=== PATIENT | female | born 1985 | race Caucasian/White ===

== ENCOUNTER 2018-08-14 13:17 | Emergency (ER) | payer OTHER ==
--- NOTE | 2018-08-14 13:49 | ED ---
General Adult HPI - General Chief complaint: Psychiatric Symptoms Stated complaint: Mental health Time Seen by Provider: 08/14/18 13:27 Source: patient, EMS, RN notes reviewed, old records reviewed Mode of arrival: EMS Limitations: no limitations - History of Present Illness Initial comments: 33-year-old female presents for mental health evaluation. She has been petitioned by her boyfriend. According to police and EMS she was threatening to kill herself with a knife. She does admit to alcohol consumption and taking Xanax this morning. She denies actually cutting herself. She states she has been depressed and had increased anxiety. She has past medical history depression, anxiety, and PTSD. - Related Data Home Medications Medication Instructions Recorded Confirmed ALPRAZolam [Xanax] 1 mg PO BID 08/14/18 08/14/18 Atomoxetine HCl [Strattera] 50 mg PO DAILY 08/14/18 08/14/18 FLUoxetine HCL [PROzac] 60 mg PO DAILY 08/14/18 08/14/18 cloNIDine HCL [Catapres] 0.1 mg PO BID 08/14/18 08/14/18 cloNIDine HCL [Catapres] 0.2 mg PO HS 08/14/18 08/14/18 Allergies Allergy/AdvReac Type Severity Reaction Status Date / Time aripiprazole [From Abilify] Allergy Unknown Verified 08/14/18 14:03 Penicillins Allergy Dyspnea Verified 08/14/18 14:03 Review of Systems ROS Statement: Those systems with pertinent positive or pertinent negative responses have been documented in the HPI. ROS Other: All systems not noted in ROS Statement are negative. Past Medical History Past Medical History: Hypertension History of Any Multi-Drug Resistant Organisms: None Reported Additional Past Surgical History / Comment(s): Ectopic - RT fallopian tube removed Past Psychological History: Anxiety Smoking Status: Never smoker Past Alcohol Use History: Occasional Past Drug Use History: None Reported General Exam Limitations: no limitations General appearance: alert, in no apparent distress, appears intoxicated Head exam: Present: atraumatic, normocephalic Eye exam: Present: normal appearance, PERRL ENT exam: Present: normal exam Neck exam: Present: normal inspection. Absent: tenderness, meningismus Respiratory exam: Present: normal lung sounds bilaterally. Absent: respiratory distress, wheezes Cardiovascular Exam: Present: normal rhythm, tachycardia GI/Abdominal exam: Present: soft. Absent: distended, tenderness Extremities exam: Present: normal inspection, tenderness Neurological exam: Present: alert, oriented X3 Psychiatric exam: Present: depressed, anxious, suicidal ideation Skin exam: Present: warm, dry, intact. Absent: cyanosis, diaphoretic Course Vital Signs 08/14/18 13:29 Temperature 98.5 F Pulse Rate 127 H Respiratory 18 Rate Blood Pressure 153/114 O2 Sat by Pulse 94 L Oximetry Medical Decision Making - Medical Decision Making 33-year-old female presenting with alcohol intoxication, suicidal thoughts. Patient is medically cleared after sobriety. She is evaluated by EPS in the emergency department. She does contract to safety, no longer has any suicidal thoughts or intentions. She will follow-up with [facility] tomorrow. Disposition Clinical Impression: Depression, Suicidal ideation Disposition: HOME SELF-CARE Condition: Good Instructions: Alcohol Intoxication (ED), Depression (ED) Additional Instructions: Patient follow up with [facility]. Is patient prescribed a controlled substance at d/c from ED?: No Referrals: Stephan Tejada MD [Primary Care Provider] - 1-2 days Time of Disposition: 19:48
[2018-08-14 13:50] VITALS: BP 153/114; PULSE 127; RESP 18; TEMP 98.5
== END 2018-08-14 20:02 | disposition home or self-care (01) ==
LOC: EC 13:17
DX: R45.851 Suicidal ideations (principal); F32.9 Major depressive disorder, single episode, unspecified; F41.9 Anxiety disorder, unspecified; F43.10 Post-traumatic stress disorder, unspecified; I10 Essential (primary) hypertension; Z79.899 Other long term (current) drug therapy; Z88.0 Allergy status to penicillin; Z88.8 Allergy status to other drugs, medicaments and biological substances
CPT/HCPCS: 99285

== ENCOUNTER 2018-08-26 16:42 | Emergency (ER) | payer OTHER ==
[2018-08-26 16:50] VITALS: BP 180/91; PULSE 90; RESP 20; TEMP 98.1
[2018-08-26] MEDS ORDERED: methylPREDNISolone SOD SUCCI 125 MG/2 ML VIAL IM ONE (16:59)
--- NOTE | 2018-08-26 17:08 | ED ---
General Adult HPI - General Chief complaint: Recheck/Abnormal Lab/Rx Stated complaint: Lumbar Pain/Abscess on Neck/Med Refill Time Seen by Provider: 08/26/18 16:52 Source: patient, RN notes reviewed Mode of arrival: ambulatory Limitations: no limitations - History of Present Illness Initial comments: Patient is a pleasant 33-year-old female presenting to the emergency department requesting a steroid shot for her back and refill of her Xanax for the next 3 weeks. Patient states she called her doctor's office however is unable to get in for another 3 weeks. Patient states she is almost out of her Xanax. Patient has a prescription that was filled on 07/31 for #60 of 1 milligram Xanax to be taken twice a day. Patient also requests a steroid shot for her chronic back pain. Patient has a history of chronic back pain and steroid injections have helped in the past. No incontinence or retention of bowel or bladder. No leg weakness. Patient also is concerned of a nodule on her right anterior neck that has been there for months. Patient states this is nontender. Patient also states she is out of her blood pressure medicine and again cannot get into see her doctor for the next 3 weeks. Patient is unclear what blood pressure medicine she is on. Patient states at one point she was on clonidine however she did not tolerate that well. - Related Data Home Medications Medication Instructions Recorded Confirmed ALPRAZolam [Xanax] 1 mg PO BID 08/14/18 08/14/18 FLUoxetine HCL [PROzac] 60 mg PO DAILY 08/14/18 08/14/18 carBAMazepine [TEGretol] 200 mg PO BID 08/26/18 08/26/18 Previous Rx's Medication Instructions Recorded ALPRAZolam [Xanax] 1 mg PO BID 3 Days #6 tab 08/26/18 amLODIPine [Norvasc] 2.5 mg PO DAILY #21 tablet 08/26/18 Allergies Allergy/AdvReac Type Severity Reaction Status Date / Time aripiprazole [From Abilify] Allergy Unknown Verified 08/26/18 16:50 Penicillins Allergy Dyspnea Verified 08/26/18 16:50 Review of Systems ROS Statement: Those systems with pertinent positive or pertinent negative responses have been documented in the HPI. ROS Other: All systems not noted in ROS Statement are negative. Constitutional: Denies: fever Eyes: Denies: eye pain ENT: Denies: ear pain Respiratory: Denies: cough Cardiovascular: Denies: chest pain Endocrine: Denies: fatigue Gastrointestinal: Denies: abdominal pain Genitourinary: Denies: dysuria Musculoskeletal: Reports: back pain (Chronic) Skin: Denies: rash Neurological: Denies: weakness Psychiatric: Reports: anxiety Past Medical History Past Medical History: Hypertension History of Any Multi-Drug Resistant Organisms: None Reported Additional Past Surgical History / Comment(s): Ectopic - RT fallopian tube removed Past Psychological History: Anxiety Smoking Status: Never smoker Past Alcohol Use History: Occasional Past Drug Use History: None Reported General Exam Limitations: no limitations General appearance: alert, in no apparent distress Head exam: Present: atraumatic Eye exam: Present: normal appearance, PERRL ENT exam: Present: normal oropharynx Neck exam: Present: other (Right anterior neck with small nontender mobile nodule approximately 7-8 mm.) Respiratory exam: Present: normal lung sounds bilaterally Cardiovascular Exam: Present: regular rate, normal rhythm Expanded Peripheral pulses: 2+: Posterior Tibialis (R), Posterior Tibialis (L) GI/Abdominal exam: Present: soft. Absent: distended, tenderness, pulsatile mass Extremities exam: Present: normal inspection. Absent: pedal edema, calf tenderness Back exam: Present: normal inspection. Absent: tenderness, vertebral tenderness Neurological exam: Present: alert. Absent: motor sensory deficit Expanded Sensory exam: Lower Extremity Light Touch: Normal Motor strength exam: RLE: 5, LLE: 5 Psychiatric exam: Present: normal affect, normal mood Skin exam: Present: normal color Course Vital Signs 08/26/18 16:48 Temperature 98.1 F Pulse Rate 90 Respiratory 20 Rate Blood Pressure 180/91 O2 Sat by Pulse 98 Oximetry Medical Decision Making - Medical Decision Making Patient is warned of risks regarding withdrawal from benzodiazepines. Patient is advised to slowly wean herself off the medications and the cut them in half. Patient is also advised that she will need to follow-up in the next couple days with her primary care physician. Disposition Clinical Impression: Low back pain, Anxiety Disposition: HOME SELF-CARE Condition: Stable Instructions: Anxiety (ED), Back Pain (ED), Hypertension (ED) Additional Instructions: Please follow-up with primary care physician in the next couple days for recheck. Do not wait 3 weeks to follow-up. You do need further care and monitoring regarding your blood pressure. There is also concern for withdrawal from benzodiazepines. Return for uncontrolled blood pressure, change in chronic pain, weakness, loss of control of bowel or bladder, worsening symptoms or other concerns. Prescriptions: ALPRAZolam [Xanax] 1 mg PO BID 3 Days #6 tab amLODIPine [Norvasc] 2.5 mg PO DAILY #21 tablet Is patient prescribed a controlled substance at d/c from ED?: Yes When asked, does pt state using other controlled substances?: No If prescribed controlled substance>3 days was MAPS reviewed?: Prescribed <3 Days Referrals: Stephan Tejada MD [Primary Care Provider] - 1-2 days Time of Disposition: 17:05
== END 2018-08-26 17:22 | disposition home or self-care (01) ==
LOC: EC 16:42
DX: M54.5 Low back pain (principal); G89.29 Other chronic pain; F41.9 Anxiety disorder, unspecified; Z76.0 Encounter for issue of repeat prescription; R22.1 Localized swelling, mass and lump, neck; Z79.899 Other long term (current) drug therapy; Z88.0 Allergy status to penicillin; Z88.8 Allergy status to other drugs, medicaments and biological substances
CPT/HCPCS: 99282; 96372; J2930

== ENCOUNTER 2018-11-09 11:42 | Emergency (ER) | payer OTHER ==
[2018-11-09 11:52] VITALS: BP 123/82; PULSE 75; RESP 16; TEMP 98
[2018-11-09] MEDS ORDERED: ALPRAZolam 1 MG TAB PO STA (12:19)
--- NOTE | 2018-11-09 12:25 | ED ---
General Adult HPI - General Chief complaint: Recheck/Abnormal Lab/Rx Stated complaint: EPS eval Time Seen by Provider: 11/09/18 12:02 Source: patient, RN notes reviewed Mode of arrival: ambulatory Limitations: no limitations - History of Present Illness Initial comments: 33-year-old female presents to the emergency department for a chief complaint medication refill. Patient states she missed her doctor's appointment and cannot be seen until tomorrow to get her medications refilled. Patient states she would like a prescription for Xanax, Adderall, and amlodipine. Triage note does say patient is here for EPS evaluation however patient denies ever saying this. She denies any suicidal or homicidal thoughts. Patient states she is feeling like herself and just needs a medication refill as her doctor will not see her until tomorrow. Patient has no other complaints at this time including shortness of breath, chest pain, abdominal pain, nausea or vomiting, headache, or visual changes. - Related Data Home Medications Medication Instructions Recorded Confirmed ALPRAZolam [Xanax] 1 mg PO BID PRN 08/14/18 08/26/18 FLUoxetine HCL [PROzac] 40 mg PO DAILY 08/14/18 08/26/18 carBAMazepine [TEGretol] 200 mg PO BID 08/26/18 08/26/18 Previous Rx's Medication Instructions Recorded ALPRAZolam [Xanax] 1 mg PO BID 3 Days #6 tab 08/26/18 amLODIPine [Norvasc] 2.5 mg PO DAILY #21 tablet 08/26/18 amLODIPine [Norvasc] 10 mg PO DAILY #5 tablet 11/09/18 Allergies Allergy/AdvReac Type Severity Reaction Status Date / Time aripiprazole [From Abilify] Allergy Unknown Verified 11/09/18 11:52 Penicillins Allergy Dyspnea Verified 11/09/18 11:52 Review of Systems ROS Statement: Those systems with pertinent positive or pertinent negative responses have been documented in the HPI. ROS Other: All systems not noted in ROS Statement are negative. Past Medical History Past Medical History: Hypertension History of Any Multi-Drug Resistant Organisms: None Reported Additional Past Surgical History / Comment(s): Ectopic - RT fallopian tube removed Past Psychological History: Anxiety Smoking Status: Never smoker Past Alcohol Use History: Occasional Past Drug Use History: None Reported General Exam Limitations: no limitations General appearance: alert, in no apparent distress Head exam: Present: atraumatic, normocephalic, normal inspection Eye exam: Present: normal appearance, PERRL, EOMI. Absent: scleral icterus, conjunctival injection, periorbital swelling ENT exam: Present: normal exam, mucous membranes moist, normal external ear exam Neck exam: Present: normal inspection, full ROM. Absent: tenderness, meningismus, lymphadenopathy Respiratory exam: Present: normal lung sounds bilaterally. Absent: respiratory distress, wheezes, rales, rhonchi, stridor Cardiovascular Exam: Present: regular rate, normal rhythm, normal heart sounds. Absent: systolic murmur, diastolic murmur, rubs, gallop, clicks GI/Abdominal exam: Present: soft, normal bowel sounds. Absent: distended, tenderness, guarding, rebound, rigid Neurological exam: Present: alert, oriented X3, CN II-XII intact Psychiatric exam: Present: normal affect, normal mood. Absent: homicidal ideation, suicidal ideation Course Vital Signs 11/09/18 11:47 Temperature 98.0 F Pulse Rate 75 Respiratory 16 Rate Blood Pressure 123/82 O2 Sat by Pulse 98 Oximetry Medical Decision Making - Medical Decision Making 33 year old female presents to the emergency department for a chief complaint of medication refill. Patient needs xanax, Adderall, and amlodipine. I did tell patient that I was comfortable filling her amlodipine however will not be refilling Xanax or Adderall as she has an appointment with her physician tomorrow for these refills. I did tell her I could give her one Xanax here in the emergency department. Patient is pleasant and agreeable to this plan. Triage note does state that patient is here for EPS evaluation, however patient states she never said this. She is denying any suicidal or homicidal thoughts. No thoughts of depression. Patient states she is simply here because she missed her appointment with her doctor and cannot get her medicines refilled until tomorrow patient will follow up at her appointment tomorrow. Disposition Clinical Impression: Encounter for medication refill Disposition: HOME SELF-CARE Condition: Good Instructions (If sedation given, give patient instructions): Medicine Refill (ED) Additional Instructions: Please follow-up with your doctor tomorrow for your medication refills. Please return here to the emergency department if you develop any worsening symptoms. Prescriptions: amLODIPine [Norvasc] 10 mg PO DAILY #5 tablet Is patient prescribed a controlled substance at d/c from ED?: No Referrals: Stephan Tejada MD [Primary Care Provider] - 1-2 days Time of Disposition: 12:23
== END 2018-11-09 12:37 | disposition home or self-care (01) ==
LOC: EC 11:42
DX: Z76.0 Encounter for issue of repeat prescription (principal); F41.9 Anxiety disorder, unspecified; Z79.899 Other long term (current) drug therapy; Z88.8 Allergy status to other drugs, medicaments and biological substances; Z88.0 Allergy status to penicillin
CPT/HCPCS: 99281

== ENCOUNTER 2025-02-25 20:59 | Inpatient (IN) | payer MEDICAID, OTHER ==
--- NOTE | 2025-02-25 21:08 | ED ---
Psych HPI - General Stated Complaint: SI ETOH Time Seen by Provider: 02/25/25 21:06 Source: police, RN notes reviewed, old records reviewed Mode of arrival: ambulatory Limitations: no limitations - History of Present Illness Initial Comments: This is a 39-year-old female of acute alcohol intoxication. Patient coming in for evaluation of acute psychosis depression drug abuse and intent of overdose, patient admits to suicidal thoughts MD Complaint: suicidal ideation, feels depressed -: days(s) Associated Psychiatric Symptoms: depression, suicidal ideation History of same: Yes Quality: constant Improves With: none Worsens With: none Context: significant life stressor Associated Symptoms: denies other symptoms Treatments Prior to Arrival: placed on mental health hold If Self Harm: admits thoughts of self harm - Related Data Home Medications Medication Instructions Recorded Confirmed ALPRAZolam [Xanax] 1 mg PO BID PRN 08/14/18 08/26/18 FLUoxetine HCL [PROzac] 40 mg PO DAILY 08/14/18 08/26/18 carBAMazepine [TEGretol] 200 mg PO BID 08/26/18 08/26/18 Previous Rx's Medication Instructions Recorded ALPRAZolam [Xanax] 1 mg PO BID 3 Days #6 tab 08/26/18 amLODIPine [Norvasc] 2.5 mg PO DAILY #21 tablet 08/26/18 amLODIPine [Norvasc] 10 mg PO DAILY #5 tablet 11/09/18 Allergies Allergy/AdvReac Type Severity Reaction Status Date / Time aripiprazole [From Abilify] Allergy Unknown Verified 05/11/22 13:10 Penicillins Allergy Dyspnea Verified 05/11/22 13:10 Review of Systems ROS Statement: Those systems with pertinent positive or pertinent negative responses have been documented in the HPI. ROS Other: All systems not noted in ROS Statement are negative. Past Medical History Past Medical History: Asthma, Hypertension History of Any Multi-Drug Resistant Organisms: None Reported Additional Past Surgical History / Comment(s): Ectopic - RT fallopian tube removed Past Psychological History: Anxiety Smoking Status: Never smoker Past Alcohol Use History: Occasional Past Drug Use History: None Reported General Exam General appearance: alert, in no apparent distress Head exam: Present: atraumatic, normocephalic, normal inspection Eye exam: Present: normal appearance, PERRL, EOMI. Absent: scleral icterus, conjunctival injection, periorbital swelling ENT exam: Present: normal exam, mucous membranes moist Neck exam: Present: normal inspection. Absent: tenderness, meningismus, lymphadenopathy Respiratory exam: Present: normal lung sounds bilaterally. Absent: respiratory distress, wheezes, rales, rhonchi, stridor Cardiovascular Exam: Present: regular rate, normal rhythm, normal heart sounds. Absent: systolic murmur, diastolic murmur, rubs, gallop, clicks GI/Abdominal exam: Present: soft, normal bowel sounds. Absent: distended, tenderness, guarding, rebound, rigid Extremities exam: Present: normal inspection, full ROM, normal capillary refill. Absent: tenderness, pedal edema, joint swelling, calf tenderness Back exam: Present: normal inspection Neurological exam: Present: alert, oriented X3, CN II-XII intact Psychiatric exam: Present: normal affect, normal mood Skin exam: Present: warm, dry, intact, normal color. Absent: rash Course Vital Signs 02/26/25 01:23 Temperature 98.3 F Pulse Rate 84 Respiratory 18 Rate Blood Pressure 113/75 O2 Sat by Pulse 96 Oximetry - Reevaluation(s) Reevaluation #1: 02/25/25 22:26 Medical records reviewed Reevaluation #2: Medical cleared for psychiatric evaluation Reevaluation #3: Differential Mental Health Depression, anxiety, bipolar, psychosis, schizophrenia, borderline personality, situational depression, adjustment disorder, behavioral disorder, brain tumor, malingering, substance abuse, encephalopathy, medication reaction, dementia, hypothyroidism, degenerative neurologic disorder, lupus.... This is not meant to be all-inclusive list Reevaluation #4: Was pt. sent in by a medical professional or institution (, PA, TAX ASSISTANT, urgent care, hospital, or retirement...) When possible be specific @ -no Did you speak to anyone other than the patient for history (EMS, parent, family, police, friend...)? What history was obtained from this source @ -no Did you review nursing and triage notes (agree or disagree)? Why? @ -agree Are old charts reviewed (outside hosp., previous admission, EMS record, old EKG, old radiological studies, urgent care reports/EKG's, retirement records)? Report findings @ -yes Differential Diagnosis (chest pain, altered mental status, abdominal pain women, abdominal pain men, vaginal bleeding, weakness, fever, dyspnea, syncope, headache, dizziness, GI bleed, back pain, seizure, CVA, palpatations, mental health, musculoskeletal)? @ -prior EKG interpreted by me (3pts min.). @ -no X-rays interpreted by me (1pt min.). @ -no CT interpreted by me (1pt min.). @ -no U/S interpreted by me (1pt. min.). @ -no What testing was considered but not performed or refused? (CT, X-rays, U/S, labs)? Why? @ -none What meds were considered but not given or refused? Why? @ -none Did you discuss the management of the patient with other professionals (professionals i.e. Dr., PA, TAX ASSISTANT, lab, RT, psych nurse, social and political studies professor, adult education teacher, teacher, accounting officer, rehabilitation case coordinator)? Give summary @ -no Was smoking cessation discussed for >3mins.? @ -no Was critical care preformed (if so, how long)? @ -no Were there social determinants of health that impacted care today? How? (Homelessness, low income, unemployed, alcoholism, drug addiction, transportation, low edu. Level, literacy, decrease access to med. care, [facility], rehab)? @ -none Was there de-escalation of care discussed even if they declined (Discuss DNR or withdrawal of care, Hospice)? DNR status @ -no What co-morbidities impacted this encounter? (DM, HTN, Smoking, COPD, CAD, Cancer, CVA, ARF, Chemo, Hep., AIDS, mental health diagnosis, sleep apnea, morbid obesity)? @ -none Was patient admitted / discharged? Hospital course, mention meds given and route, prescriptions, significant lab abnormalities, going to OR and other per tinent info. @ - 39 female to be admitted for psychiatric evaluation and treatment Admitted Undiagnosed new problem with uncertain prognosis? @ -no Drug Therapy requiring intensive monitoring for toxicity (Heparin, Nitro, Insulin, Cardizem)? @ -no Were any procedures done? @ -no Diagnosis/symptom? @ - Acute, or Chronic, or Acute on Chronic? @ -Acute Uncomplicated (without systemic symptoms) or Complicated (systemic symptoms)? @ -Complicated Side effects of treatment? @ -no Exacerbation, Progression, or Severe Exacerbation? @ -exacerbation Poses a threat to life or bodily function? How? (Chest pain, [place], [place], pneumonia, PE, COPD, DKA, ARF, appy, cholecystitis, CVA, Diverticulitis, Homicidal, Suicidal, threat to staff... and all critical care pts) @ -no Medical Decision Making - Medical Decision Making 39 female to be admitted for psychiatric evaluation and treatment - Lab Data Result diagrams: 02/26/25 07:50 02/26/25 07:50 Lab Results 02/26/25 Range/Units 01:50 SARS-CoV-2 (PCR) Not Detected (Not Detectd) Disposition Clinical Impression: Acute psychosis, Adjustment reaction of adult life, Depression, Suicidal ideation Disposition: TRANSFER TO PSYCH HOSP/UNIT Condition: Fair Is patient prescribed a controlled substance at d/c from ED?: No
[2025-02-25] MEDS: HALOPERIDOL LACTATE 5 MG/ML 1 ML VIAL IM STA (21:58)
[2025-02-26] MEDS ORDERED: MAGNESIUM HYDROXIDE 2,400 MG/30 ML CUP PO PRN (02:56)
[2025-02-26] MEDS ORDERED: HALOPERIDOL LACTATE 5 MG/ML 1 ML VIAL IM PRN (02:56)
[2025-02-26] MEDS ORDERED: LORazepam 1 MG TAB PO PRN (02:56)
[2025-02-26] MEDS ORDERED: ACETAMINOPHEN TAB 325 MG TAB PO PRN (02:56)
[2025-02-26] MEDS ORDERED: MAG HYDROX/AL HYDROX/SIMETH 355 ML BOTTLE PO PRN (02:56)
[2025-02-26 08:32] LABS: Basophils # (A) 0.05 10*3/uL (0.00-0.10); Basophils % (A) 0.5 %; Eosinophils # (A) 0.03 10*3/uL (0.04-0.35); Eosinophils % (A) 0.3 %; HCT 39.0 % (37.2-46.3); HGB 13.2 g/dL (12.0-15.0); Lymphocytes # (A) 2.10 10*3/uL (0.90-5.00); Lymphocytes % (A) 21.0 %; MCH 32.3 pg (27.0-32.0); MCHC 33.8 g/dL (32.0-37.0); MCV 95.4 fL (80.0-97.0); Monocytes # (A) 0.58 10*3/uL (0.20-1.00); Monocytes % (A) 5.8 %; Neutrophils # (A) 7.23 10*3/uL (1.80-7.70); Neutrophils % (A) 72.1 %; Platelet Count 290 10*3/uL (140-440); RBC 4.09 10*6/uL (4.10-5.20); RDW 13.4 % (11.5-14.5); WBC 10.02 10*3/uL (4.50-10.00)
[2025-02-26 08:52] LABS: ALT 19 U/L (4-34); AST 27 U/L (14-36); African American GFR (CKD) >90 (>60 ml/min/1.73 sqM); Albumin 4.4 g/dL (3.5-5.0); Alkaline Phosphatase 61 U/L (38-126); Anion Gap 12 mmol/L; Blood Urea Nitrogen 14 mg/dL (7-17); Calcium 9.1 mg/dL (8.4-10.2); Carbon Dioxide 22 mmol/L (22-30); Chloride 102 mmol/L (98-107); Glucose 92 mg/dL (74-99); Non-African American GFR(CKD) >90 (>60 ml/min/1.73 sqM); Potassium 4.3 mmol/L (3.5-5.1); Sodium 136 mmol/L (137-145); Total Protein 6.9 g/dL (6.3-8.2)
[2025-02-26] MEDS: IBUPROFEN 600 MG TAB PO PRN (09:25)
[2025-02-26] MEDS: LORazepam 1 MG TAB PO PRN (09:26)
[2025-02-26] MEDS: NICOTINE 14MG/24HR PATCH TRANSDERM SCH (09:38)
--- NOTE | 2025-02-26 12:04 | P.HP ---
Psychiatric H&P - . H&P Date: 02/26/25 History & Physical: Allergies Allergy/AdvReac Type Severity Reaction Status Date / Time aripiprazole from Abilify Allergy Unknown Verified 05/11/22 13:10 Penicillins Allergy Dyspnea Verified 05/11/22 13:10 Vital Signs Temp 97.8 F 02/26/25 09:00 Pulse 79 02/26/25 09:00 Resp 20 02/26/25 04:55 BP 116/84 02/26/25 09:00 Pulse Ox 99 02/26/25 09:00 FiO2 Intake & Output 02/25/25 02/26/25 02/26/25 18:59 06:59 18:59 Weight 66.791 kg Laboratory Last Values WBC 10.02 10*3/uL (4.50-10.00) H 02/26/25 07:50 RBC 4.09 10*6/uL (4.10-5.20) L 02/26/25 07:50 Hgb 13.2 g/dL (12.0-15.0) 02/26/25 07:50 Hct 39.0 % (37.2-46.3) 02/26/25 07:50 MCV 95.4 fL (80.0-97.0) 02/26/25 07:50 MCH 32.3 pg (27.0-32.0) H 02/26/25 07:50 MCHC 33.8 g/dL (32.0-37.0) 02/26/25 07:50 Plt Count 290 10*3/uL (140-440) 02/26/25 07:50 MPV 11.1 fL (9.5-12.2) 02/26/25 07:50 Immature Gran % (Auto) 0.3 % 02/26/25 07:50 Neutrophils % 72.1 % 02/26/25 07:50 Lymphocytes % 21.0 % 02/26/25 07:50 Monocytes % 5.8 % 02/26/25 07:50 Eosinophils % 0.3 % 02/26/25 07:50 Basophils % 0.5 % 02/26/25 07:50 Immature Gran # 0.03 10*3/uL (0.00-0.04) 02/26/25 07:50 Neutrophils # 7.23 10*3/uL (1.80-7.70) 02/26/25 07:50 Lymphocytes # 2.10 10*3/uL (0.90-5.00) 02/26/25 07:50 Monocytes # 0.58 10*3/uL (0.20-1.00) 02/26/25 07:50 Eosinophils # 0.03 10*3/uL (0.04-0.35) L 02/26/25 07:50 Basophils # 0.05 10*3/uL (0.00-0.10) 02/26/25 07:50 Sodium 136 mmol/L (137-145) L 02/26/25 07:50 Potassium 4.3 mmol/L (3.5-5.1) 02/26/25 07:50 Chloride 102 mmol/L (98-107) 02/26/25 07:50 Carbon Dioxide 22 mmol/L (22-30) 02/26/25 07:50 Anion Gap 12 mmol/L 02/26/25 07:50 BUN 14 mg/dL (7-17) 02/26/25 07:50 Creatinine 0.58 mg/dL (0.52-1.04) 02/26/25 07:50 Est GFR (CKD-EPI)AfAm >90 (>60 ml/min/1.73 sqM) 02/26/25 07:50 Est GFR (CKD-EPI)NonAf >90 (>60 ml/min/1.73 sqM) 02/26/25 07:50 Glucose 92 mg/dL (74-99) 02/26/25 07:50 Calcium 9.1 mg/dL (8.4-10.2) 02/26/25 07:50 Total Bilirubin 0.7 mg/dL (0.2-1.3) 02/26/25 07:50 AST 27 U/L (14-36) 02/26/25 07:50 ALT 19 U/L (4-34) 02/26/25 07:50 Alkaline Phosphatase 61 U/L (38-126) 02/26/25 07:50 Total Protein 6.9 g/dL (6.3-8.2) 02/26/25 07:50 Albumin 4.4 g/dL (3.5-5.0) 02/26/25 07:50 TSH 3.440 mIU/L (0.465-4.680) 02/26/25 07:50 SARS-CoV-2 (PCR) Not Detected (Not Detectd) 02/26/25 01:50 02/26/25 11:57 IDENTIFYING DATA: Patient is a 39-year-old female, homeless, unemployed CHIEF COMPLAINT: SI with a plan HPI: Patient presented to the hospital with alcohol intoxication and suicidal thoughts. Per EPS, "Patient brought self to ED for suicidal ideations. Told FILM PRODUCER that she wants to kill herself by overdosing on heroin. patient states "I am suicidal. I am homeless and dont know what to do with myself." Patient reported to ED RN that her mother has been taking her medications. Patient reports to this screenplay writer that she has been non compliant with her medications d/t availability. Patient reports she is open with [facility]- reports that her appt on 02/21/25 was rescheduled for 03/06/25. Patient states "I just want to be ." Denies H/I, no delusions or hallucinations present. Patient reports ADLs compromised. patient would not contract for safety if discharged. Patient is HIGH RISK d/t past suicide attempt." Patient seen and evaluated on the unit and was agreeable with speaking to screenplay writer in office. She was not forthcoming with information, appeared restless however she denied any substance use including alcohol despite the ED report stating that she was intoxicated upon arrival. She did admit to being homeless for the past month with suicidal ideations with a plan to overdose on heroin for the past month however she continues to deny any current heroin use. UDS is ordered but not completed. She states living on the streets but previously was staying with her parents however they kicked her out due to her having company over when she was not supposed to. She reports a poor support network. She reports sleep difficulties, anhedonia, low mood energy, difficulties with concentrating but denying any appetite changes. She reports anxiety that appears generalized in nature with excessive worry about many different things outside of her control, racing thoughts and feeling on edge. She reports current suicidal ideations with a plan. Patient denies any homicidal ideations intent or plan. At this time patient denies any auditory or visual hallucinations. Patient denies any flight of ideas racing thoughts and increased in goal directed behavior. Patient admits to using no substances. PAST PSYCHIATRIC HISTORY: Patient has a history of depression, anxiety. Patient reports being on Prozac 40 mg daily and claims to be adherent with this medication despite the reports of being nonadherent. She states previously trying Abilify, Klonopin, Adderall and doxepin. Patient reports 1 previous inpatient hospitalization back in 2019 when she attempted suicide via overdose at that time. Patient denies any psychiatric outpatient follow-up. PMH: as per ER note ALLERGIES: as per EMR SUBSTANCE USE HISTORY: Denies, UDS ordered but not completed FAMILY PSYCHIATRIC/SUBSTANCE USE HISTORY: Patient states her mother has bipolar disorder SOCIAL HISTORY: Patient is single and has 2 children who are grown. She completed schooling up to the 12th grade and is currently homeless, unemployed. MENTAL STATUS EXAM: General Appearance: Patient appears to be stated age is alert, directable, and attempts to cooperate. Patient appears to have poor hygiene and grooming. Behavior: Patient is seated without any agitated behavior. Speech: Patient's speech is fluent and nonpressured. Mood/Affect: Patient reports their mood is depressed, affect is congruent and constricted. Suicidality/Homicidality: Patient denies having any homicidal ideation intent or plan. She reports suicidal ideations with a plan Perceptions: Patient denies any visual hallucinations and denies any auditory hallucinations Though content/process: There is no evidence of any delusional thought content and thought process is linear and goal-directed. Memory and concentration: AOX3, grossly intact for the purposes of this session. Can spell "WORLD" backwards Judgment and insight: Poor STRENGTHS/WEAKNESSES: strength is that patient is resilient. Weakness is that patient has poor judgment and is impulsive INTELLECT: Average IMPRESSIONS: Major depressive disorder, recurrent, moderate Generalized anxiety disorder Rule out alcohol use disorder PLAN: -Patient is admitted under voluntary status to [facility]HU for stabilization of psychiatric symptoms and safety. Patient has signed adult voluntary form and and is placed in patient's chart. -Medications : Increase Prozac to 60 mg daily for depression/anxiety, start trazodone 100 mg at bedtime for insomnia - Ativan and Haldol PRN for agitation/aggression -CIWA protocol with Ativan PRN for ETOH withdrawal. -Patient was counselled on substance abuse and desired to cut back on use-Will offer patient subtance use rehab -Patient was informed of the risks, benefits and side effects of the medication and patient verbally consented to taking the medications. Patient signed med consent form and was placed in chart. Patient offered and declined patient education sheet for psychotropic medications. -Internal Medicine consult to perform medical evaluation and physical. -NRT -not needed as patient does not smoke -SW on board for discharge planning. Encourage patient to participate in groups to work on coping skills.
[2025-02-26 15:24] LABS: Cholesterol 196.00 mg/dL (0.00-200.00); HDL Cholesterol 92.00 mg/dL (40.00-60.00); LDL Cholesterol,Calculated 93.5 mg/dL (0.0-131.0); Triglycerides 52.60 mg/dL (0.00-149.00); VLDL Calculation 10.52 mg/dL (5.00-40.00)
--- NOTE | 2025-02-26 21:09 | CONS ---
CONSULTATION CHIEF COMPLAINT: Major depression. HISTORY OF PRESENT ILLNESS: This is another admission for this 39-year-old white female with a history of major depression, ADHD, and substance abuse. Apparently, she presented to the emergency room with depression and suicidal thoughts and was admitted. REVIEW OF SYSTEMS: She denies headaches, chest pain, abdominal pain, etc. PAST MEDICAL HISTORY, FAMILY HISTORY, PERSONAL AND SOCIAL HISTORIES: Revealed that she is allergic to clonidine, penicillin, and ARPIT inhibitors. When she was last seen in my office, which was in September, she was on Klonopin, Adderall, omeprazole, carbamazepine, amlodipine, and losartan as well as chlorthalidone. She had significant problems with drug abuse over the years and multiple failed drug screens. PHYSICAL EXAMINATION: VITAL SIGNS: Normal. HEAD, EARS, EYES, NOSE, MOUTH AND THROAT: Normal. CHEST: Clear. CARDIAC: Demonstrates sinus rhythm. ABDOMEN: Soft. EXTREMITIES: Normal. IMPRESSION: 1. Major depression. 2. History of hypertension. 3. History of substance abuse. RECOMMENDATIONS: None. Thank you respectfully. MMJAQUELINE / CRISTAN: [id number] /
[2025-02-26] MEDS: carBAMazepine 200 MG TAB PO SCH (21:23)
[2025-02-27] MEDS: amLODIPine 10 MG TAB PO SCH (09:22)
[2025-02-27] MEDS: amLODIPine 2.5 MG TAB PO SCH (09:22)
[2025-02-27] MEDS: LORazepam 1 MG TAB PO PRN (10:26)
--- NOTE | 2025-02-27 11:52 | P.PN ---
Progress Note - Text Progress Note Date: 02/27/25 Interval History: Patient was seen in bed and was directable and agreeable to speak with law writer in the office. She reports high anxiety and poor appetite but did eat a little bit of her breakfast. She states sleeping well however continues to express suicidal ideations with a plan to overdose given her homelessness. She was encouraged to attend groups. At this time patient denies any homicidal ideations, intent or plan. Patient denies any auditory, visual hallucinations and denies any paranoia or delusions. Patient denies any side effects from the medications and has been compliant with meds. Mental Status Exam: General Appearance: Patient appears to be stated age is alert, directable, and cooperative. She has poor grooming Behavior: Patient is calmly seated without any agitated behavior. Speech: Patient's speech is fluent and nonpressured. Mood/Affect: Mood is improving mildly, affect is congruent and constricted. Suicidality/Homicidality: Patient denies having any homicidal ideation intent or plan. Patient reports suicidal ideations with a plan Perceptions: Patient denies any visual hallucinations and denies any auditory hallucinations Though content/process: There is no evidence of any delusional thought content and thought process is linear. Memory and concentration: AOX3, grossly intact for the purposes of this session Judgment and insight: Improving mildly Assessment Major depressive disorder, recurrent, moderate Generalized anxiety disorder Rule out alcohol use disorder Plan: -Patient continues to meet criteria for inpatient psychiatric admission for symptom stabilization and safety. Patient has signed adult voluntary form and medication consent and was placed in patient's chart. -Medications: Continue Prozac 60 mg daily for depression/anxiety, trazodone 100 mg at bedtime for insomnia -When necessary Ativan and Haldol for agitation/aggression. -Labs: Grossly WNL, UDS ordered but not collected -CIWA protocol with Ativan PRN for ETOH withdrawal. -SW on board for discharge planning. Encouraged the patient to participate in milieu.
[2025-02-27] MEDS: NICOTINE GUM (POLACRILEX) 2 MG GUM BUCCAL PRN (21:14)
[2025-02-28] MEDS: clonazePAM 1 MG TAB PO STA (00:49)
--- NOTE | 2025-02-28 11:14 | P.PN ---
Progress Note - Text Progress Note Date: 02/28/25 Interval History: Patient was seen in bed and was directable and agreeable to speak with investigative writer in the room. She had difficulty sleeping last night due to anxiety and received as needed Klonopin which she states was minimally effective. She requests Xanax however this was discouraged and she was agreeable with instead changing Ativan to Klonopin as needed as this is better for anxiety. She rates her anxiety an 8/10 today in severity. CIWAs was up to 12 overnight. At this time patient de nies any suicidal or homicidal ideations, intent or plan. Patient denies any auditory, visual hallucinations and denies any paranoia or delusions. Patient denies any side effects from the medications and has been compliant with meds. Mental Status Exam: General Appearance: Patient appears to be stated age is alert, directable, and cooperative. She has poor grooming and hygiene Behavior: Patient is calmly laying without any agitated behavior. Speech: Patient's speech is fluent and nonpressured. Mood/Affect: Mood is improving mildly, affect is congruent and constricted. Suicidality/Homicidality: Patient denies having any suicidal or homicidal ideation intent or plan. Perceptions: Patient denies any visual hallucinations and denies any auditory hallucinations Though content/process: There is no evidence of any delusional thought content and thought process is linear and goal-directed. Memory and concentration: AOX3, grossly intact for the purposes of this session Judgment and insight: Improving mildly Assessment Major depressive disorder, recurrent, moderate Generalized anxiety disorder Alcohol use disorder Plan: -Patient continues to meet criteria for inpatient psychiatric admission for symptom stabilization and safety. Patient has signed adult voluntary form and medication consent and was placed in patient's chart. -Medications: Increase trazodone to 200 mg at bedtime for insomnia, continue Prozac 60 mg daily for depression/anxiety -When necessary Klonopin and Haldol for agitation/aggression. -Labs: Grossly WNL -CIWA protocol with Ativan PRN for ETOH withdrawal. -SW on board for discharge planning. Encouraged the patient to participate in milieu.
[2025-02-28] MEDS: clonazePAM 1 MG TAB PO PRN (16:10)
--- NOTE | 2025-03-01 11:28 | P.PN ---
Progress Note - Text Progress Note Date: 03/01/25 Chief complaint: Suicidal thoughts Interval History: Patient was seen in her room lying in bed. Attempts were made to get her awake and did not engaged in the interview. However the patient refused to get up she was informed that we will see her tomorrow. Mental Status Exam: General Appearance: Patient appears to be stated age is alert, uncooperative. Behavior: Lying in bed calm Speech: Patient would not talk to me Mood/Affect: Appears severely depressed Suicidality/Homicidality: Refused to answer Perceptions: Refused to answer Though content/process: Unable to obtain Memory and concentration: AOX3, grossly intact for the purposes of this session Judgment and insight: Poor/Poor Diagnosis: Major depressive disorder, recurrent, moderate Generalized anxiety disorder Alcohol use disorder Assessment: The patient is refusing to get up she acknowledged my presence but decided to pull the blankets over her head. At this time we will follow-up tomorrow. Plan: -Patient continues to meet criteria for inpatient psychiatric admission for symptom stabilization and safety. Patient has signed adult voluntary form and medication consent and was placed in patient's chart. -Medications: Increase trazodone to 200 mg at bedtime for insomnia, continue Prozac 60 mg daily for depression/anxiety -When necessary Klonopin and Haldol for agita Chief complaint: Suicidal thoughtstion/aggression. -Labs: Grossly WNL -CIWA protocol with Ativan PRN for ETOH withdrawal. -SW on board for discharge planning. Encouraged the patient to participate in milieu.
--- NOTE | 2025-03-02 12:08 | P.PN ---
Progress Note - Text Progress Note Date: 03/02/25 Chief complaint: Suicidal thoughtstion/aggression. Interval History: Patient was seen wandering the hallways and was directable and agreeable to speak with instructional writer in the office. The patient presented somewhat sedated. However the patient had noted that she did not have a lot of sleep last night because she had trouble falling asleep. She made a request for Seroquel. Additionally she asked for Adderall and Klonopin. She was informed that we would not give those medications. She notes that her depression and anxiety are 8/10 with 10 being worst. She denies any ongoing suicidal thoughts. She notes that she is bored and her energy is low. She notes that her appetite is good and concentration. She plans to follow-up with [facility] upon discharge. She is currently homeless and wants to speak to the social professionals about temporary housing. She had attended groups this morning. Mental Status Exam: General Appearance: Appeared her stated age was dressed appropriate and cooperative Behavior: Patient did present slightly sedated and slow in speech Speech: Patient's speech is fluent and nonpressured. Mood/Affect: Mood is improving mildly, affect is congruent and constricted. Suicidality/Homicidality: Patient denies having any suicidal or homicidal ideation intent or plan. Perceptions: Patient denies any visual hallucinations and denies any auditory hallucinations Though content/process: There is no evidence of any delusional thought content and thought process is linear and goal-directed. Memory and concentration: AOX3, grossly intact for the purposes of this session Judgment and insight: Improving mildly Diagnosis: Major depressive disorder, recurrent, moderate Generalized anxiety disorder Alcohol use disorder Assessment: The patient requested Seroquel which we will start and discontinue the Trazodone. She is not currently suicidal but displays depression and drug- seeking behavior. Currently she is not stable to discharge due to fear of relapse. Plan: -Patient continues to meet criteria for inpatient psychiatric admission for symptom stabilization and safety. Patient has signed adult voluntary form and medication consent and was placed in patient's chart. -Medications: Increase Discontinue Trazodone to 200 mg at bedtime for insomnia Continue Prozac 60 mg daily for depression/anxiety Start Seroquel 50 mg take 1 tablet by mouth at bedtime for insomnia/mood -When necessary Klonopin and Haldol for agitation -Labs: Grossly WNL -CIWA protocol with Ativan PRN for ETOH withdrawal. -SW on board for discharge planning. Encouraged the patient to participate in milieu
[2025-03-02] MEDS: QUEtiapine 50 MG TAB PO SCH (20:40)
[2025-03-02 21:34] VITALS: RESP 16
--- NOTE | 2025-03-03 10:49 | P.PN ---
Progress Note - Text Progress Note Date: 03/03/25 Chief complaint: Suicidal thoughtstion/aggression. Interval History: Patient was seen wandering the hallways and was directable and agreeable to speak with repairer typewriter in the office. The patient used the Seroquel last night and slept up to 12 hours. She notes a reduction in her symptoms and currently rates her depression and anxiety 7/10 with 10 being worst (previous both 8/10). She denies any ongoing suicidal thoughts. She notes that her energy is currently worse than yesterday but does not know why. She notes that her appetite and concentration are good. We discussed what she is going to do tomorrow including speaking to the manager social services about helping her with housing and getting an appointment over at [facility] in [place]. Mental Status Exam: General Appearance: Appeared her stated age was dressed appropriate and cooperative Behavior: Patient did present slightly sedated and slow in speech Speech: Patient's speech is fluent and nonpressured. Mood/Affect: Mood is improving mildly, affect is congruent and constricted. Suicidality/Homicidality: Patient denies having any suicidal or homicidal ideation intent or plan. Perceptions: Patient denies any visual hallucinations and denies any auditory hallucinations Though content/process: There is no evidence of any delusional thought content and thought process is linear and goal-directed. Memory and concentration: AOX3, grossly intact for the purposes of this session Judgment and insight: Improving mildly Diagnosis: Major depressive disorder, recurrent, moderate Generalized anxiety disorder Alcohol use disorder Assessment: The patient is progressing at this time it is felt that the sleep is therapeutic for her no changes in the Seroquel unless she is oversedated throughout the day. Anticipated discharge next week. Plan: -Patient continues to meet criteria for inpatient psychiatric admission for symp rowena stabilization and safety. Patient has signed adult voluntary form and medication consent and was placed in patient's chart. -Medications: Increase Continue Prozac 60 mg daily for depression/anxiety Seroquel 50 mg take 1 tablet by mouth at bedtime for insomnia/mood -When necessary Klonopin and Haldol for agitation -Labs: Grossly WNL -CIWA protocol with Ativan PRN for ETOH withdrawal. -SW on board for discharge planning. Encouraged the patient to participate in milieu
[2025-03-04 10:42] LABS: Bacteria,Urine Occasional /hpf; Bilirubin,Urine Negative (Negative); Blood,Urine Negative (Negative); Color,Urine Colorless; Glucose,Urine (UA) Negative (Negative); Ketones,Urine Negative (Negative); Leukocyte Esterase,Urine Negative (Negative); Mucus,Urine Rare /hpf; Nitrite,Urine Negative (Negative); PH, Urine 7.0 (5.0-8.0); Protein,Urine Negative (Negative); RBC,Urine <1 /hpf (0-5); Specific Gravity,Urine 1.009 (1.001-1.035); Squamous Epithelial Cell,Urine 4 /hpf (0-4); Urobilinogen,Urine <2.0 mg/dL (<2.0); WBC,Urine <1 /hpf (0-5)
--- NOTE | 2025-03-04 12:02 | P.PN ---
Progress Note - Text Progress Note Date: 03/04/25 Chief complaint: Suicidal thoughtstion/aggression. Interval History: Patient was seen wandering the hallways and was directable and agreeable to speak with policy writer typist in the office. The patient presented today somewhat flat. She still has an approach with social work about housing. She notes that she is ready for discharge tomorrow. She denies any suicidal thoughts. She notes that her depression and anxiety are 5/10 with 10 being worst (previous both 7/10). She continues to get 12 hours of sleep at night. She notes that her energy and appetite are fair. She notes that her concentration is normal. Mental Status Exam: General Appearance: Appeared her stated age was dressed appropriate and cooperative Behavior: Patient did present appropriately and cooperative. Speech: Patient's speech is fluent and nonpressured. Mood/Affect: Mood is improving mildly, affect is congruent and constricted. Suicidality/Homicidality: Patient denies having any suicidal or homicidal ideation intent or plan. Perceptions: Patient denies any visual hallucinations and denies any auditory hallucinations Though content/process: There is no evidence of any delusional thought content and thought process is linear and goal-directed. Memory and concentration: AOX3, grossly intact for the purposes of this session Judgment and insight: Improving mildly Diagnosis: Major depressive disorder, recurrent, moderate Generalized anxiety disorder Alcohol use disorder Assessment: The patient is presenting almost ready for discharge at this point. She has been told multiple times to go to the professor of social work to get housing options. At this point were scheduling discharge tomorrow and she was informed of this. Plan: -Patient continues to meet criteria for inpatient psychiatric admission for symptom stabilization and safety. Patient has signed adult voluntary form and medication consent and was placed in patient's chart. -Medications: Increase Continue Prozac 60 mg daily for depression/anxiety Seroquel 50 mg take 1 tablet by mouth at bedtime for insomnia/mood -When necessary Klonopin and Haldol for agitation -Labs: Grossly WNL -CIWA protocol with Ativan PRN for ETOH withdrawal. -SW on board for discharge planning. Encouraged the patient to participate in milieu. Needs an appointment at [facility] in [facility].
[2025-03-04 19:41] LABS: Urine Alcohol Negative (Negative); Urine Barbiturate Negative (Negative)
[2025-03-05 09:09] VITALS: BP 83/55; PULSE 83; TEMP 97.6
--- NOTE | 2025-03-05 10:57 | P.DS ---
Providers Date of admission: 02/26/25 02:53 Admission HPI: Admission note was completed by Dr. Chan "Patient presented to the hospital with alcohol intoxication and suicidal thoughts. Per EPS, "Patient brought self to ED for suicidal ideations. Told AIRCRA[employer] MECH[employer]IC that she wants to kill herself by overdosing on heroin. patient states "I am suicidal. I am homeless and dont know what to do with myself." Patient reported to ED RN that her mother has been taking her medications. Patient reports to this job specification writer that she has been non compliant with her medications d/t availability. Patient reports she is open with [facility]- reports that her appt on 02/21/25 was rescheduled for 03/06/25. Patient states "I just want to be ." Denies H/I, no delusions or hallucinations present. Patient reports ADLs compromised. patient would not contract for safety if discharged. Patient is HIGH RISK d/t past suicide attempt." Patient seen and evaluated on the unit and was agreeable with speaking to job specification writer in office. She was not forthcoming with information, appeared restless however she denied any substance use including alcohol despite the ED report stating that she was intoxicated upon arrival. She did admit to being homeless for the past month with suicidal ideations with a plan to overdose on heroin for the past month however she continues to deny any current heroin use. UDS is ordered but not completed. She states living on the streets but previously was staying with her parents however they kicked her out due to her having company over when she was not supposed to. She reports a poor support network. She reports sleep difficulties, anhedonia, low mood energy, difficulties with concentrating but denying any appetite changes. She reports anxiety that appears generalized in nature with excessive worry about many different things outside of her control, racing thoughts and feeling on edge. She reports current suicidal ideations with a plan. Patient denies any homicidal ideations intent or plan. At this time patient denies any auditory or visual hallucinations. Patient denies any flight of ideas racing thoughts and increased in goal directed behavior. Patient admits to using no substances." Hospital course: Upon admission to the unit patient was directable and agreeable to commence treatment and signed adult voluntary form . The patient got along well with other patients on the unit and followed unit protocol. Patient was compliant with the medications and denied any side effects throughout hospital course. Patient was started on on her home meds Prozac was increased to 60 mg and the patient was started on Seroquel 25 mg at night for sleep. Patient spoke of her stressors and engaged in therapy both group and individual. Patient was also seen by medical team for history and physical exam. Throughout the course of the hospitalization patient gradually improved with regards to mood, anxiety, sleep and returned back to their baseline level of functioning became more future oriented with improved insight and judgment. On the day of discharge patient denied any suicidal or homicidal ideations intent or plan denied any auditory or visual hallucinations. Patient endorsed wanting to live for their health and family. The patient denied any access to guns or weapons. Patient denied any paranoia and did not endorse any delusions. Patient does have a significant history of substance abuse and was counseled on abstaining from all substances including alcohol and marijuana. Patient was offered however declined inpatient substance-abuse rehab. The patient was also counseled on the medications and need for regular compliance and was encouraged to follow-up with their outpatient appointment for mental health and also for primary care. Prior to discharge a family meeting will be arranged by criminal justice social worker to answer any questions and ensure safety upon discharge incuding making sure that guns /weapons are either removed from the home or locked away. The patient notes day of discharge safety plan of [phone]. She notes that she is currently not suicidal or homicidal. She notes mild depression and moderate anxiety. She denies any problems with sleep, energy, appetite or concentration. She plans to follow-up with her mental health provider in [place]. Mental status exam: General Appearance: Patient appears to be her stated age is alert, pleasant, and cooperative. Patient is in no acute distress and has improved hygiene and grooming Behavior: Patient is calmly seated without any agitated behavior. Speech: Patient's speech is fluent and nonpressured. Mood/Affect: Patient reports their mood is "better good", affect is congruent and euthymic. Suicidality/Homicidality: Patient denies having any suicidal or homicidal ideation intent or plan. Perceptions: Patient denies any auditory or visual hallucinations. Though content/process: There is no evidence of any delusional thought content and thought process is linear and goal-directed. More future oriented Memory and concentration: AOX3, grossly intact for the purposes of this session. Can spell "WORLD" backwards correctly. Judgment and insight: Chronically poor, however has improved with guarded prognosis Diagnosis: Major depressive disorder, recurrent, moderate Generalized anxiety disorder Alcohol use disorder Plan: -Continue with discharge today as patient has improved and stabilized psychiatrically and is not currently an imminent threat to themself and/or others. Patient will remain at chronically elevated risk for harm to self and/or others due to their impulsivity and substance abuse. -Continue medications: Continue Prozac 60 mg daily for depression/anxiety Seroquel 50 mg take 1 tablet by mouth at bedtime for insomnia/mood -Patient was counseled on the need for medication compliance and appropriate follow-up at mental health and also primary care for medical issues. Patient verbalized understanding and agreed. -Social work to help coordinate patients discharge today arrange for and conduct family meeting to ensure safety upon discharge and answer any questions/concerns. also to ensure safe home environment that guns/weapons are either removed from the home or locked away. Social work also to arrange for patients follow up appointments with [facility] for psychiatric care along with follow up with primary care provider. -Patient counseled on abstaining from recreational drugs and marijuana and alcohol. Was informed/educated on the adverse effects on their physical and mental health. Patient verbally agreed and understood. Patient was offered substance abuse treatment however declined at this time. -Patient was instructed to return to the hospital or seek immediate medical care if their psychiatric or medical symptoms do worsen or reoccur. Attending physician: Marcie Bradford MD Consults: 02/26/25 02:56 Consult Physician Routine Consulting Provider: Stephan Tejada Consult Reason/Comments: medical H&P Do you want consulting provider notified?: Yes Primary care physician: Stephan Tejada - Discharge Diagnosis(es) (1) Acute psychosis Current Visit: Yes Status: Resolved Priority: Low (2) Adjustment reaction of adult life Current Visit: Yes Status: Acute Priority: Medium (3) Depression Current Visit: Yes Status: Chronic Priority: Medium (4) Suicidal ideation Current Visit: Yes Status: Resolved Priority: Low Plan - Discharge Summary Discharge Rx Participant: No New Discharge Prescriptions: No Action FLUoxetine HCL [PROzac] 40 mg PO DAILY ALPRAZolam [Xanax] 1 mg PO BID PRN PRN Reason: Anxiety carBAMazepine [TEGretol] 200 mg PO BID ALPRAZolam [Xanax] 1 mg PO BID 3 Days #6 tab amLODIPine [Norvasc] 2.5 mg PO DAILY #21 tablet amLODIPine [Norvasc] 10 mg PO DAILY #5 tablet Discharge Medication List ALPRAZolam [Xanax] 1 mg PO BID PRN 08/14/18 [History] FLUoxetine HCL [PROzac] 40 mg PO DAILY 08/14/18 [History] ALPRAZolam [Xanax] 1 mg PO BID 3 Days #6 tab 08/26/18 [Rx] amLODIPine [Norvasc] 2.5 mg PO DAILY #21 tablet 08/26/18 [Rx] carBAMazepine [TEGretol] 200 mg PO BID 08/26/18 [History] amLODIPine [Norvasc] 10 mg PO DAILY #5 tablet 11/09/18 [Rx] Follow up Appointment(s)/Referral(s): [facility] [Other] - 03/11/25 10:30 am (03/11 @ 10:30 Virtual with Payal Benítez ) [facility] [Other] - 1 Week Stephan Tejada MD [Primary Care Provider] - 1-2 days Patient Instructions/Handouts: Depression (DC), Generalized Anxiety Disorder (ED), Alcohol Use Disorder (DC) Activity/Diet/Wound Care/Special Instructions: [facility] Discharge Info Avoid the use of street drugs and alcohol. Take all medications as prescribed. When you are in need of refills on your medications, please contact your outpatient medical provider and/or outpatient psychiatrist. Please go to your scheduled outpatient appointments for aftercare treatment. If symptoms return or become worse, call the crisis line at or and/or visit the nearest emergency room for assistance. National Suicide and Crisis Lifeline - call or text 843.
== END 2025-03-05 12:04 | disposition home or self-care (01) | DRG 751 ==
LOC: EC 20:59 → 3MHU 02-26 02:53
PROVIDERS: ADMIT Psychiatry & Neurology Psychiatry; ATTEND Psychiatry & Neurology Psychiatry
DX: F33.1 Major depressive disorder, recurrent, moderate (principal); F23 Brief psychotic disorder; F10.129 Alcohol abuse with intoxication, unspecified; F41.1 Generalized anxiety disorder; F43.20 Adjustment disorder, unspecified; G47.00 Insomnia, unspecified; I10 Essential (primary) hypertension; J45.909 Unspecified asthma, uncomplicated; R45.851 Suicidal ideations; Z56.0 Unemployment, unspecified; Z79.899 Other long term (current) drug therapy; Z91.148 Patient's other noncompliance with medication regimen for other reason; Z91.51 Personal history of suicidal behavior; Z11.52 Encounter for screening for COVID-19; Z88.0 Allergy status to penicillin; Z88.8 Allergy status to other drugs, medicaments and biological substances; R45.1 Restlessness and agitation; Z71.41 Alcohol abuse counseling and surveillance of alcoholic; Z71.51 Drug abuse counseling and surveillance of drug abuser; Z71.89 Other specified counseling; F90.9 Attention-deficit hyperactivity disorder, unspecified type; Z59.02 Unsheltered homelessness
CPT/HCPCS: 80053; 80061; 80306; 81001; 82075; 83036; 84443; 85025; 87635; 96372; 99285